=== PATIENT | male | born 1990 | race Caucasian/White ===

== ENCOUNTER 2020-03-12 10:29 | Emergency (ER) | payer OTHER, SELFPAY ==
[2020-03-12 10:56] VITALS: BP 123/73; PULSE 62; RESP 14; TEMP 36.8; O2SAT 100
[2020-03-12 11:05] VITALS: BMI 27.0
[2020-03-12 11:22] LABS: COVID19 -Nasal RAPID POSITIVE (Negative)
--- NOTE | 2020-03-12 11:36 | ED_ITS ---
HPI - Recheck/Abnormal Lab/Rx General Chief Complaint: Recheck/Abnormal Lab/Rx Stated Complaint: COVID Symptoms, exposed yesterday Time Seen by Provider: 03/12/20 11:30 Source: patient Mode of arrival: Family Vehicle Limitations: no limitations History of Present Illness HPI narrative: Patient is a 29-year-old healthy male who was exposed to COVID 1 week ago. He is part of the [place] he went to school in [place], flew back. He said all other people started having symptoms 1-2 days ago and were positive. He woke up yesterday with inability to taste or smell. He denies any fever body aches cough shortness of breath. Requesting COVID-19 test. Review of Systems Review of Systems Narrative: GENERAL: Denies chills, fatigue, malaise, fever, sweats, travel HEENT: See HPI RESPIRATORY: Denies dyspnea, cough, wheezing, hemoptysis, sputum. CARDIOVASCULAR: Denies chest pain, palpitations, orthopnea, edema GASTROINTESTINAL: Denies nausea, vomiting, abdominal pain, diarrhea, constipation, melena. : Denies dysuria, frequency, incontinence, hematuria, urinary retention, flank pain. MUSCULOSKELETAL: Denies weakness, joint pain, or bony pain SKIN: No rash, no erythema, no pruritus NEUROLOGIC: Denies weakness, dizziness, headache, numbness, change in speech, confusion PSYCHIATRIC: No concerning psychosocial issues. 12 point review of systems is negative except for those stated above and HPI Patient History Medical History (Updated 03/12/20 @ 11:41 by Mariella Trujillo DO) Patient denies medical problems Social History Smoking Status: Never smoker Smoking Status: Never smoker alcohol intake frequency: holidays/special occasions only Substance Use Type: does not use Exam Initial Vital Signs Initial Vital Signs: Vital Signs Temperature 98.2 F 03/12/20 10:56 Pulse Rate 62 03/12/20 10:56 Respiratory Rate 14 03/12/20 10:56 Blood Pressure 123/73 03/12/20 10:56 Pulse Oximetry 100 03/12/20 10:56 GENERAL: Well-appearing, well-nourished and in no acute distress. CARDIOVASCULAR: peripheral pulses in tact, cap refill <2 sec RESPIRATORY: No respiratory distress, speaks in full sentences without difficulty EXTREMITIES: Normal range of motion, no clubbing or edema. Neurovascularly intact NEUROLOGICAL: Cranial nerves II through XII grossly intact. Normal gait and speech. SKIN: Warm, dry, no petechiae, no rashes or lesions. Course Orders Ordered: ED Orders 03/12/20 11:00 COVID19 Stat Vital Signs Vital signs: Vital Signs - 8 hr 03/12/20 10:56 Temperature 98.2 F Pulse Rate 62 Respiratory Rate 14 Blood Pressure 123/73 Pulse Oximetry 100 MDM - Recheck/Abnormal Lab/Rx Lab Data Attestation: I reviewed the patient's lab results. Labs: Lab Results 03/12/20 Range/Units 11:00 COVID-19 PCR Positive H (Negative) MDM Narrative Medical decision making narrative: Patient is positive for COVID-19. I remain 6 ft away in full PPE from patient. He is in no respiratory distress. He is healthy without any cor morbidities. Discharge Plan Departure Patient Disposition: Home Clinical Impression: COVID-19 Instructions: COVID-19 Viral Test Activity Restrictions/Additional Instructions: CDC Guidelines for home isolation: You must quarantine for 14 days. - Stay away from others - Limit contact with pets and animals: If you must care for a pet, wash your hands before and after interacting with them - Wear a mask if you are sick - Cover your mouth and nose with a tissue when you cough or sneeze. Dispose of tissues in a lined trash can and wash your hands immediately with soap and water for at least 20 seconds. If soap and water are not available, clean hands with alcohol-based hand recreation officer that contains at least 60% alcohol. - Clean your hands often with soap and water for at least 20 seconds - Avoid touching your eyes, nose and mouth with unwashed hands - Do not share dishes, drinking glasses, cups, eating utensils, towels, or bedding with other people in your home. After using these items, wash them thoroughly with soap and water or put in the ampoule filler and sealer. - Clean high-touch surfaces in your isolation area (?sick room? and bathroom) every day; let a caregiver clean and disinfect high-touch surfaces in other a reas of the home. Clean the area or item with soap and water or another detergent if it is dirty. Then, use a household disinfectant. Seek medical attention, but call first: - Seek medical care right away if your illness is worsening (for example, if you have difficulty breathing). - Call your doctor before going in: Before going to the doctor?s office or emergency room, call ahead and tell them your symptoms. They will tell you what to do. - If possible, put on a facemask before you enter the building. If you can?t put on a facemask, try to keep a safe distance from other people (at least 6 feet away). This will help protect the people in the office or waiting room. - Follow care instructions from your healthcare provider and local health department: Your local health authorities will give instructions on checking your symptoms and reporting information. Emergency warning signs for COVID-19: - Difficulty breathing or shortness of breath - Persistent pain or pressure in the chest - New confusion or inability to arouse - Bluish lips or face
== END 2020-03-12 12:05 | disposition home or self-care (01) ==
PROVIDERS: Emergency Provider Emergency Medicine
DX: U07.1 COVID-19 (principal)
CPT/HCPCS: 87635; 99281; 99282